=== PATIENT | female | born 1990 | race American Indian/Alaskan Native ===

== ENCOUNTER 2020-12-19 05:58 | Inpatient (IN) | payer BC, MEDICAID ==
[2020-12-19] MEDS ORDERED: fentaNYL 100 MCG/2 ML INJ IV PRN (09:04)
[2020-12-19] MEDS ORDERED: ONDANSETRON 4 MG/2 ML INJ IV PRN (09:04)
[2020-12-19] MEDS ORDERED: LOPERAMIDE 2 MG CAP PO PRN (09:04)
[2020-12-19] MEDS ORDERED: CARBOPROST TROMETHAMINE 250 MCG/1 ML INJ IM PRN (09:04)
[2020-12-19] MEDS ORDERED: miSOPROStol 200 MCG TAB PR PRN (09:04)
[2020-12-19] MEDS ORDERED: METHYLERGONOVINE MALEATE 0.2 MG/ML VIAL IM PRN (09:04)
[2020-12-19] MEDS ORDERED: ePHEDrine SULFATE 50 MG/1 ML INJ IV PRN ×2 (09:04→16:00)
[2020-12-19] MEDS ORDERED: MINERAL OIL 30 ML ORAL LIQD PO PRN (09:04)
[2020-12-19] MEDS ORDERED: ACETAMINOPHEN 325 MG TAB PO PRN (09:04)
[2020-12-19] MEDS ORDERED: TERBUTALINE 1 MG/1 ML INJ SUB-Q PRN (09:04)
[2020-12-19] MEDS ORDERED: OXYTOCIN 10 UNIT/1 ML INJ IM PRN (09:04)
[2020-12-19] MEDS ORDERED: NalbUPHINE 10 MG/1 ML INJ IV PRN (09:04)
--- NOTE | 2020-12-19 09:14 | History and Physical Report ---
History of Present Illness Date of examination: 12/19/20 (active labor; cervical chg in Triage) Chief complaint: worsening contractions History of present illness: EDC Confirmation: 12/16/2020 Gestational Age: 40+ weeks Past History : 1 Term Births: 0 Premature Births: 0 Living Children: 0 Para: 0 Mult. Births: 0 Prev : 0 Prev. attempt? 0 Aborta: 0 Elect. Ab: 0 Spont. 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 Family Hx: breast CA - Paternal aunt Social Hx: single no ETOH/Drugs/Smoking Infection History Hx of STD: none HIV Risk Eval: no Hepatitis B Risk Eval: low risk Varicella/Chicken Pox Status: Previous Disease Genetic History Congenital Heart Defect: Mom: no Dad: no [place] Disease: Mom: no Dad: no Thalassemia Mom: no Dad: no Neural Tube Defect Mom: no Dad: no Down's Syndrome Mom: no Dad: no Tony-Sachs Mom: no Dad: no Sickle Cell Disease/Trait Mom: no Dad: no Hemophilia Mom: no Dad: no Muscular Dystrophy Mom: no Dad: no Cystic Fibrosis Mom: no Dad: no [place] Chorea Mom: no Dad: no Mental Retardation Mom: no Dad: no Fragile X Mom: no Dad: no Other Genetic/Chromosomal Disorder Mom: no Dad: no Child w/other defect Mom: no Dad: no Enviromental Exposures Xray Exposure: no Medication, drug, or alcohol use since LMP: no Chemical/Other Exposure: no Exposure to Cat Liter: no Hx of Parvovirus (Fifth Disease): no Occupational Exposure to Children: none Active Medications (reviewed today): None Current Allergies (reviewed today): No known allergies Past History Past Medical History: no pertinent history, other (obesity BMI 46) Past Surgical History: tonsillectomy Family/Genetic History: cancer Social history: single - Obstetrical History Expected Date of Delivery: 12/16/20 Actual Gestation: 40 Week(s) 3 Day(s) : 1 Para: 0 Hx # Term Pregnancies: 0 Number of Pregnancies: 0 Spontaneous Abortions: 0 Induced : 0 Number of Living Children: 0 Medications and Allergies Allergies Allergy/AdvReac Type Severity Reaction Status Date / Time No Known Allergies Allergy Verified 03/10/14 17:10 Home Medications Medication Instructions Recorded Confirmed Last Taken Type Cyclobenzaprine [Flexeril 10mg] 10 mg PO BID PRN #10 tablet 03/10/14 Unknown Rx Naproxen [Naprosyn] 250 mg PO BID #20 tablet 03/10/14 Unknown Rx RX: predniSONE [Deltasone] 40 mg PO QDAY #4 day 03/10/14 Unknown Rx RX: traMADoL [Ultram 50 MG tab] 50 mg PO Q6HR PRN #10 tablet 03/10/14 Unknown Rx Review of Systems All systems: negative - Vital Signs Vital signs: Vital Signs Pulse BP Pulse Ox 101 H 123/91 99 12/19/20 06:20 12/19/20 06:20 12/19/20 06:20 Temp Pulse Resp BP Pulse Ox 98.6 F 67 18 115/70 100 12/19/20 06:21 12/19/20 09:07 12/19/20 06:21 12/19/20 08:53 12/19/20 09:07 - Physical Exam Breasts: Positive: deferred Cardiovascular: Regular rate, Normal S1, Normal S2 Lungs: Positive: Normal air movement Abdomen: Positive: normal appearance, soft, normal bowel sounds. Negative: dis tention, tenderness Genitourinary (Female): Positive: normal external genitalia Vulva: both: normal Vagina: Positive: normal moisture. Negative: discharge Cervix: Negative: lesion, discharge Uterus: Positive: normal size, normal contour Adnexa: both: normal Anus/Rectum: Positive: normal perianal skin, heme negative. Negative: rectal mass, hemorrhoids Extremities: Deep Tendon Reflex Grade: Normal +2 - Obstetrical FHR: category 1 Uterine Contraction Monitor Mode: External Cervical Dilatation: 3.5 Cervical Effacement Percentage: 70 station: -2 Uterine Contraction Pattern: Regular Uterine Tone Measurement Phase: Resting Uterine Contraction Intensity: Moderate Results All other labs normal. GBS POSITIVE HBsAg Screen Negative Negative *1 RPR Non Reactive Non Reactive *2 Rubella Antibodies, IgG 1.63 index Immune >0.99 *3 Non-immune <0.90 Equivocal 0.90 - 0.99 Immune >0.99 ABO Grouping A *1 Rh Factor Positive *2 Please note: Prior records for this patient's ABO / Rh type are not available for additional verification. Tests: (2) Gest. Diabetes 1-Hr Screen (714649) ! Gestational Diabetes Screen 85 mg/dL 65-139 *3 According to ADA, a glucose threshold of >139 mg/dL after 50-gram load identifies approximately 80% of women with gestational diabetes mellitus, while the sensitivity is further increased to approximately 90% by a threshold of >129 mg/dL. Tests: (3) Antibody Screen ([id number]) Antibody Screen Negative Negative *4 WBC [H] 14.9 x10E3/uL 3.4-10.8 *7 RBC 4.91 x10E6/uL 3.77-5.28 *8 Hemoglobin 12.7 g/dL 11.1-15.9 *9 Hematocrit 39.4 % 34.0-46.6 *10 MCV 80 fL 79-97 *11 MCH [L] 25.9 pg 26.6-33.0 *12 MCHC 32.2 g/dL 31.5-35.7 *13 RDW 14.7 % 11.7-15.4 *14 Platelets 418 x10E3/uL 150-450 *15 Neutrophils 83 % Not Estab. *16 Lymphs 13 % Not Estab. *17 Monocytes 4 % Not Estab. *18 Eos 0 % Not Estab. *19 Basos 0 % Not Estab. *20 ! Immature Cells <No Reported Value> *21 Neutrophils (Absolute) [H] 12.2 x10E3/uL 1.4-7.0 *22 Lymphs (Absolute) 1.9 x10E3/uL 0.7-3.1 *23 Monocytes(Absolute) 0.6 x10E3/uL 0.1-0.9 *24 Eos (Absolute) 0.0 x10E3/uL 0.0-0.4 *25 Baso (Absolute) 0.1 x10E3/uL 0.0-0.2 *26 ! Immature Granulocytes 0 % Not Estab. *27 ! Immature Grans (Abs) 0.0 x10E3/uL 0.0-0.1 *28 ! NRBC <No Reported Value> *29 Hematology Comments: <No Reported Value> *30 Tests: (2) HB Solu + Rflx Frac ([id number]) Hemoglobin (Hgb) Solubility [A] Positive Negative *31 Verified by repeat analysis Tests: (3) Hemoglobin Frac.w/o Solubility ([id number]) ! Hgb F 0.0 % 0.0-2.0 *32 ! Hgb A [L] 58.3 % 96.4-98.8 *33 ! Hgb S [H] 37.6 % 0.0 *34 ! Hgb C 0.0 % 0.0 *35 ! Hgb A2 [H] 4.1 % 1.8-3.2 *36 ! Hgb Variant <No Reported Value> *37 ! Interpretation HGAS1 *38 Hemoglobin pattern and concentration are consistent with sickle cell trait (heterozygous). Suggest clinical and hematologic correlation. Sickle Trait Interpretation Ranges Hgb A 50.0 - 70.0% Hgb S 30.0 - 45.0% Hgb A2 3.0 - 5.0%* *Hgb A2 values are seen to be increased over normal levels. This increase is typically due to interference from co-eluting Hgb S-subunits with the HPLC method and therefore the Hgb A2 interpretation ranges have been adjusted. Tests: (4) HIV Ag/Ab with Reflex ([id number]) HIV Screen 4th Generation wRfx Non Reactive Non Reactive *39 Tests: (5) HCV Ab w/Rflx to Verification ([id number]) ! HCV Ab <0.1 s/co ratio 0.0-0.9 *40 Tests: (6) Comment: ([id number]) ! Comment: SPRCS *41 Non reactive HCV antibody screen is consistent with no HCV infection, unless recent infection is suspected or other evidence exists to indicate HCV infection. Tests: (7) Urine Culture, Routine ([id number]) Urine Culture, Routine Final report *42 Tests: (8) Result ([id number]) ! Result 1 MUG *43 Mixed urogenital blanquita 10,000-25,000 colony forming units per mL Assessment and Plan 30yo @ 40+w GBS+ in active labor All orders in EMR - Patient Problems (1) Group B Streptococcus carrier state affecting Onset Date: ~12/19/20 Current Visit: Yes Status: Acute Plan to address problem: Will treat per protocol
[2020-12-19] MEDS ORDERED: LACTATED RINGERS 1,000 ML IV SCH (09:15)
[2020-12-19] MEDS ORDERED: LIDOCAINE (2%) 20 MG/1 ML VIAL 20 ML MDV INFILTRATI ONE (10:00)
[2020-12-19] MEDS ORDERED: AMPICILLIN/NS 2 GM/100 ML 2 GM/100 ML BAG IV ONE (10:00)
[2020-12-19] MEDS ORDERED: OXYTOCIN DRIP 30 UNITS/500 ML BAG IV SCH ×2 (10:00)
--- NOTE | 2020-12-19 12:36 | Event Note ---
Date: 12/19/20 (Pt states ctx are worsening.) SVE 4,70,-2 Pt eventually desires an epidural. Eating at the moment
[2020-12-19] MEDS ORDERED: AMPICILLIN/NS 1 GM/50 ML 1 GM/50 ML BAG IV SCH (14:00)
[2020-12-19 14:44] LABS: Hematocrit 33.5 % (30.3-42.9); Mean Corpuscular HGB Conc 33 % (30-34); Mean Corpuscular Volume 83 fl (79-97); Platelet Count 426 K/mm3 (140-440); Red Blood Count 4.03 M/mm3 (3.65-5.03); Red Cell Distribution Width 16.7 % (13.2-15.2)
--- NOTE | 2020-12-19 15:19 | Anesthesia Consultation ---
Anesthesia Consult and Med Hx Date of service: 12/19/20 - Airway Anesthetic Teeth Evaluation: Poor ROM Head & Neck: Adequate Mental/Hyoid Distance: Adequate Mallampati Class: Class III Intubation Access Assessment: Possibly Difficult - Pulmonary Exam CTA: Yes - Cardiac Exam Cardiac Exam: RRR - Pre-Operative Health Status ASA Pre-Surgery Classification: ASA3 Proposed Anesthetic Plan: Epidural - Pulmonary Hx Smoking: No Hx Asthma: No Hx Respiratory Symptoms: No SOB: No COPD: No Home Oxygen Therapy: No Hx Pneumonia: No Hx Sleep Apnea: No - Cardiovascular System Hx Hypertension: No Hx Coronary Artery Disease: No Hx Heart Attack/AMI: No Hx Angina: No Hx Percutaneous Transluminal Coronary Angioplasty (PTCA): No Hx Cardia Arrhythmia: No Hx Pacemaker: No Hx Internal Defibrillator: No Hx Valvular Heart Disease: No Hx Heart Murmur: No Hx Peripheral Vascular Disease: No - Central Nervous System Hx Neuromuscular Disorder: No Hx Seizures: No CVA: No Hx Back Pain: Yes - Gastrointestinal Hx Ulcer: No Hx Gastroesophageal Reflux Disease: Yes - Endocrine Hx Renal Disease: No Hx End Stage Renal Disease: No Hx Cirrhosis: No Hx Liver Disease: No Hx Insulin Dependent Diabetes: No Hx Non-Insulin Dependent Diabetes: No Hx Thyroid Disease: No Hx Hypothyroidism: No Hx Hyperthyroidism: No - Hematic Hx Anemia: No Hx Sickle Cell Disease: Yes (Trait) - Other Systems Hx Alcohol Use: No Hx Substance Use: No Hx Cancer: No Hx Obesity: Yes - Additional Comments Anesthesia Medical History Comments: Tonsillectomy/ear tubes
[2020-12-19] MEDS ORDERED: NALOXONE 2 MG/2 ML INJ IV PRN (16:00)
[2020-12-19] MEDS ORDERED: fentaNYL-BUPIV 2 MCG/ML-0.125% 200 MCG/100 ML BAG EPIDURAL SCH (16:00)
--- NOTE | 2020-12-19 16:07 | Progress Note ---
Assessment and Plan Comfortable with epidural Buchanan placed. ISE/IUPC placed Meconium noted at rupture Pit restarted - Patient Problems (1) Group B Streptococcus carrier state affecting Onset Date: ~12/19/20 Current Visit: Yes Status: Acute (2) Meconium in amniotic fluid Onset Date: ~12/19/20 Current Visit: Yes Status: Acute Plan to address problem: NICU notified Pt aware of finding and that NICU/DASHA will be present for delivery Subjective - Subjective Date of service: 12/19/20 (comfortable with epidural) Interval history: EDC Confirmation: 12/16/2020 Gestational Age: 40+ weeks Past History : 1 Term Births: 0 Premature Births: 0 Living Children: 0 Para: 0 Mult. Births: 0 Prev : 0 Prev. attempt? 0 Aborta: 0 Elect. Ab: 0 Spont. 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 Family Hx: breast CA - Paternal aunt Social Hx: single no ETOH/Drugs/Smoking Infection History Hx of STD: none HIV Risk Eval: no Hepatitis B Risk Eval: low risk Varicella/Chicken Pox Status: Previous Disease Genetic History Congenital Heart Defect: Mom: no Dad: no [place] Disease: Mom: no Dad: no Thalassemia Mom: no Dad: no Neural Tube Defect Mom: no Dad: no Down's Syndrome Mom: no Dad: no Tony-Sachs Mom: no Dad: no Sickle Cell Disease/Trait Mom: no Dad: no Hemophilia Mom: no Dad: no Muscular Dystrophy Mom: no Dad: no Cystic Fibrosis Mom: no Dad: no [place] Chorea Mom: no Dad: no Mental Retardation Mom: no Dad: no Fragile X Mom: no Dad: no Other Genetic/Chromosomal Disorder Mom: no Dad: no Child w/other defect Mom: no Dad: no Enviromental Exposures Xray Exposure: no Medication, drug, or alcohol use since LMP: no Chemical/Other Exposure: no Exposure to Cat Liter: no Hx of Parvovirus (Fifth Disease): no Occupational Exposure to Children: none Active Medications (reviewed today): None Current Allergies (reviewed today): No known allergies Patient reports: movement normal Objective - Vital Signs Vital Signs: Vital Signs - 12hr 12/19/20 12/19/20 12/19/20 06:20 06:21 06:25 Temperature 98.6 F Pulse Rate 101 H 84 84 Respiratory 18 Rate Blood Pressure 123/91 Blood Pressure 123/91 [Right] O2 Sat by Pulse 99 100 99 Oximetry O2 Sat by Pulse Oximetry [ Bilateral Throughout] 12/19/20 12/19/20 12/19/20 06:30 06:35 06:36 Temperature Pulse Rate 85 82 82 Respiratory Rate Blood Pressure 121/86 Blood Pressure [Right] O2 Sat by Pulse 99 99 Oximetry O2 Sat by Pulse Oximetry [ Bilateral Throughout] 12/19/20 12/19/20 12/19/20 06:40 06:45 06:50 Temperature Pulse Rate 89 79 69 Respiratory Rate Blood Pressure Blood Pressure [Right] O2 Sat by Pulse 100 99 99 Oximetry O2 Sat by Pulse Oximetry [ Bilateral Throughout] 12/19/20 12/19/20 12/19/20 06:51 06:55 07:00 Temperature Pulse Rate 73 80 83 Respiratory Rate Blood Pressure 121/88 Blood Pressure [Right] O2 Sat by Pulse 99 99 Oximetry O2 Sat by Pulse Oximetry [ Bilateral Throughout] 12/19/20 12/19/20 12/19/20 07:08 07:21 07:36 Temperature Pulse Rate 64 76 75 Respiratory Rate Blood Pressure 123/70 116/66 113/73 Blood Pressure [Right] O2 Sat by Pulse Oximetry O2 Sat by Pulse Oximetry [ Bilateral Throughout] 12/19/20 12/19/20 12/19/20 08:52 08:53 08:57 Temperature Pulse Rate 78 73 63 Respiratory Rate Blood Pressure 115/70 Blood Pressure [Right] O2 Sat by Pulse 99 100 Oximetry O2 Sat by Pulse Oximetry [ Bilateral Throughout] 12/19/20 12/19/20 12/19/20 09:02 09:07 09:26 Temperature Pulse Rate 65 67 92 H Respiratory Rate Blood Pressure 122/89 Blood Pressure [Right] O2 Sat by Pulse 99 100 97 Oximetry O2 Sat by Pulse Oximetry [ Bilateral Throughout] 12/19/20 12/19/20 12/19/20 09:31 09:36 09:41 Temperature Pulse Rate 82 77 75 Respiratory Rate Blood Pressure Blood Pressure [Right] O2 Sat by Pulse 100 100 99 Oximetry O2 Sat by Pulse Oximetry [ Bilateral Throughout] 12/19/20 12/19/20 12/19/20 09:46 09:51 09:56 Temperature Pulse Rate 76 68 70 Respiratory Rate Blood Pressure Blood Pressure [Right] O2 Sat by Pulse 99 99 100 Oximetry O2 Sat by Pulse Oximetry [ Bilateral Throughout] 12/19/20 12/19/20 12/19/20 10:01 10:06 10:11 Temperature Pulse Rate 78 84 74 Respiratory Rate Blood Pressure Blood Pressure [Right] O2 Sat by Pulse 99 99 100 Oximetry O2 Sat by Pulse Oximetry [ Bilateral Throughout] 12/19/20 12/19/20 12/19/20 10:16 10:21 10:26 Temperature Pulse Rate 73 77 80 Respiratory Rate Blood Pressure Blood Pressure [Right] O2 Sat by Pulse 100 100 99 Oximetry O2 Sat by Pulse Oximetry [ Bilateral Throughout] 12/19/20 12/19/20 12/19/20 10:31 10:36 10:41 Temperature Pulse Rate 90 63 68 Respiratory Rate Blood Pressure Blood Pressure [Right] O2 Sat by Pulse 100 100 100 Oximetry O2 Sat by Pulse Oximetry [ Bilateral Throughout] 12/19/20 12/19/20 12/19/20 10:46 10:51 10:56 Temperature Pulse Rate 69 94 H 79 Respiratory Rate Blood Pressure Blood Pressure [Right] O2 Sat by Pulse 100 100 100 Oximetry O2 Sat by Pulse Oximetry [ Bilateral Throughout] 12/19/20 12/19/20 12/19/20 11:01 11:06 11:13 Temperature Pulse Rate 71 68 72 Respiratory Rate Blood Pressure Blood Pressure [Right] O2 Sat by Pulse 100 100 99 Oximetry O2 Sat by Pulse Oximetry [ Bilateral Throughout] 12/19/20 12/19/20 12/19/20 11:18 11:23 11:24 Temperature Pulse Rate 82 76 77 Respiratory Rate Blood Pressure Blood Pressure [Right] O2 Sat by Pulse 99 100 94 Oximetry O2 Sat by Pulse Oximetry [ Bilateral Throughout] 12/19/20 12/19/20 12/19/20 11:28 11:33 11:38 Temperature Pulse Rate 72 71 68 Respiratory Rate Blood Pressure Blood Pressure [Right] O2 Sat by Pulse 100 100 100 Oximetry O2 Sat by Pulse Oximetry [ Bilateral Throughout] 12/19/20 12/19/20 12/19/20 11:43 11:47 11:48 Temperature Pulse Rate 66 84 82 Respiratory Rate Blood Pressure Blood Pressure [Right] O2 Sat by Pulse 100 89 98 Oximetry O2 Sat by Pulse Oximetry [ Bilateral Throughout] 12/19/20 12/19/20 12/19/20 11:53 11:58 12:03 Temperature Pulse Rate 81 78 74 Respiratory Rate Blood Pressure Blood Pressure [Right] O2 Sat by Pulse 100 98 100 Oximetry O2 Sat by Pulse Oximetry [ Bilateral Throughout] 12/19/20 12/19/20 12/19/20 12:08 12:13 12:18 Temperature Pulse Rate 73 91 H 71 Respiratory Rate Blood Pressure Blood Pressure [Right] O2 Sat by Pulse 100 100 100 Oximetry O2 Sat by Pulse Oximetry [ Bilateral Throughout] 12/19/20 12/19/20 12/19/20 12:23 12:28 12:33 Temperature Pulse Rate 78 82 92 H Respiratory Rate Blood Pressure Blood Pressure [Right] O2 Sat by Pulse 100 100 100 Oximetry O2 Sat by Pulse Oximetry [ Bilateral Throughout] 12/19/20 12/19/20 12/19/20 12:38 12:43 12:48 Temperature Pulse Rate 103 H 92 H 93 H Respiratory Rate Blood Pressure Blood Pressure [Right] O2 Sat by Pulse 100 100 100 Oximetry O2 Sat by Pulse Oximetry [ Bilateral Throughout] 12/19/20 12/19/20 12/19/20 12:53 12:58 13:03 Temperature Pulse Rate 81 74 81 Respiratory Rate Blood Pressure Blood Pressure [Right] O2 Sat by Pulse 100 100 100 Oximetry O2 Sat by Pulse Oximetry [ Bilateral Throughout] 12/19/20 12/19/20 12/19/20 13:13 13:18 13:23 Temperature Pulse Rate 92 H 97 H 82 Respiratory Rate Blood Pressure Blood Pressure [Right] O2 Sat by Pulse 99 100 100 Oximetry O2 Sat by Pulse Oximetry [ Bilateral Throughout] 12/19/20 12/19/20 12/19/20 13:28 13:33 13:38 Temperature Pulse Rate 78 102 H 87 Respiratory Rate Blood Pressure Blood Pressure [Right] O2 Sat by Pulse 99 99 100 Oximetry O2 Sat by Pulse Oximetry [ Bilateral Throughout] 12/19/20 12/19/20 12/19/20 13:43 13:48 13:53 Temperature Pulse Rate 87 79 96 H Respiratory Rate Blood Pressure Blood Pressure [Right] O2 Sat by Pulse 100 99 100 Oximetry O2 Sat by Pulse Oximetry [ Bilateral Throughout] 12/19/20 12/19/20 12/19/20 13:58 14:00 14:03 Temperature Pulse Rate 91 H 74 Respiratory Rate Blood Pressure Blood Pressure [Right] O2 Sat by Pulse 100 100 Oximetry O2 Sat by Pulse 100 Oximetry [ Bilateral Throughout] 12/19/20 12/19/20 12/19/20 14:08 14:13 14:14 Temperature Pulse Rate 87 75 77 Respiratory Rate Blood Pressure 126/75 Blood Pressure [Right] O2 Sat by Pulse 100 99 Oximetry O2 Sat by Pulse Oximetry [ Bilateral Throughout] 12/19/20 12/19/20 12/19/20 14:18 14:23 14:28 Temperature Pulse Rate 77 91 H 77 Respiratory Rate Blood Pressure Blood Pressure [Right] O2 Sat by Pulse 100 100 99 Oximetry O2 Sat by Pulse Oximetry [ Bilateral Throughout] 12/19/20 12/19/20 12/19/20 14:33 14:38 14:43 Temperature 98.9 F Pulse Rate 81 83 81 Respiratory 18 Rate Blood Pressure Blood Pressure [Right] O2 Sat by Pulse 100 100 98 Oximetry O2 Sat by Pulse Oximetry [ Bilateral Throughout] 12/19/20 12/19/20 12/19/20 14:44 14:48 14:53 Temperature Pulse Rate 84 83 78 Respiratory Rate Blood Pressure Blood Pressure [Right] O2 Sat by Pulse 90 100 100 Oximetry O2 Sat by Pulse Oximetry [ Bilateral Throughout] 12/19/20 12/19/20 12/19/20 14:58 15:03 15:08 Temperature Pulse Rate 112 H 70 71 Respiratory Rate Blood Pressure Blood Pressure [Right] O2 Sat by Pulse 98 99 99 Oximetry O2 Sat by Pulse Oximetry [ Bilateral Throughout] 12/19/20 12/19/20 12/19/20 15:13 15:18 15:23 Temperature Pulse Rate 75 98 H 89 Respiratory Rate Blood Pressure 119/72 127/93 Blood Pressure [Right] O2 Sat by Pulse 100 100 100 Oximetry O2 Sat by Pulse Oximetry [ Bilateral Throughout] 12/19/20 12/19/20 12/19/20 15:26 15:28 15:32 Temperature Pulse Rate 93 H 83 86 Respiratory Rate Blood Pressure 134/94 130/61 Blood Pressure [Right] O2 Sat by Pulse 100 Oximetry O2 Sat by Pulse Oximetry [ Bilateral Throughout] 12/19/20 12/19/20 12/19/20 15:33 15:35 15:38 Temperature Pulse Rate 85 80 96 H Respiratory Rate Blood Pressure 124/66 121/65 Blood Pressure [Right] O2 Sat by Pulse 100 100 Oximetry O2 Sat by Pulse Oximetry [ Bilateral Throughout] 12/19/20 12/19/20 12/19/20 15:41 15:43 15:44 Temperature Pulse Rate 93 H 82 87 Respiratory Rate Blood Pressure 141/81 131/71 Blood Pressure [Right] O2 Sat by Pulse 100 Oximetry O2 Sat by Pulse Oximetry [ Bilateral Throughout] 12/19/20 12/19/20 12/19/20 15:47 15:48 15:50 Temperature Pulse Rate 85 82 72 Respiratory Rate Blood Pressure 126/74 117/66 Blood Pressure [Right] O2 Sat by Pulse 100 Oximetry O2 Sat by Pulse Oximetry [ Bilateral Throughout] 12/19/20 12/19/20 12/19/20 15:53 15:54 15:56 Temperature Pulse Rate 74 71 69 Respiratory Rate Blood Pressure 121/76 113/69 Blood Pressure [Right] O2 Sat by Pulse 100 Oximetry O2 Sat by Pulse Oximetry [ Bilateral Throughout] 12/19/20 12/19/20 12/19/20 15:58 15:59 16:02 Temperature Pulse Rate 91 H 89 90 Respiratory Rate Blood Pressure 117/74 129/79 Blood Pressure [Right] O2 Sat by Pulse 100 Oximetry O2 Sat by Pulse Oximetry [ Bilateral Throughout] - Exam Breasts: deferred Cardiovascular: Regular rate Lungs: Normal air movement Abdomen: Present: normal appearance, soft. Absent: distention, tenderness Uterus: Present: normal FHR: auscultation normal, category 1 Uterine Contraction Monitor Mode: Internal Cervical Dilatation: 6 (Internals placed) Cervical Effacement Percentage: 90 (meconium) station: -2 Uterine Contraction Pattern: Regular Uterine Tone Measurement Phase: Resting Uterine Contraction Intensity: Moderate Extremities: normal Deep Tendon Reflex Grade: Normal +2 - Labs Labs: Abnormal Labs 12/19/20 13:45 WBC 12.6 H MCH 27 L RDW 16.7 H Laboratory Results - last 24 hr 12/19/20 12/19/20 12/19/20 09:25 13:45 13:45 WBC 12.6 H RBC 4.03 Hgb 11.0 Hct 33.5 MCV 83 MCH 27 L MCHC 33 RDW 16.7 H Plt Count 426 Syphilis IgG Antibody Nonreactive Coronavirus (PCR) Negative Blood Type Antibody Screen 12/19/20 13:45 WBC RBC Hgb Hct MCV MCH MCHC RDW Plt Count Syphilis IgG Antibody Coronavirus (PCR) Blood Type A POSITIVE Antibody Screen Negative
--- NOTE | 2020-12-19 16:13 | Progress Note ---
Labor Epidural - Labor Epidural Start Time: 15:22 Stop Time: 15:48 Performed by:: GERMAIN MOBLEY Procedure: Patient is requesting a laboring epidural for laboring pain. Patient IDed, H&P reviewed, all questions and concerns were answered, and consent was signed. Timeout was performed at bedside. Patient in sitting position. Sterile prep and drape was performed. [3] ml of 1% lidocaine skin wheal at L[3]- L [4]. 18- gauge Vidya epidural needle was advanced to loss of resistance with saline technique 9cm. Negative CSF negative blood. Epidural catheter advanced to [12] centimeters. [NEGATIVE] Aspiration [NEGATIVE] test dose. Sterile dressing applied. Patient tolerated procedure.
[2020-12-19] MEDS ORDERED: SODIUM CHLORIDE 0.9% 1000 ML 1,000 ML VG SCH (18:30)
--- NOTE | 2020-12-19 19:37 | Event Note ---
Date: 12/19/20 (comfortable with epidural) Persistent variables noted SVE 6,90,-1 Amnioinfusion started Pit on 2mu Good responseCat 1 strip.
--- NOTE | 2020-12-19 19:43 | Progress Note ---
Assessment and Plan anticipate delivery - Patient Problems (1) Group B Streptococcus carrier state affecting Onset Date: ~12/19/20 Current Visit: Yes Status: Acute (2) Meconium in amniotic fluid Onset Date: ~12/19/20 Current Visit: Yes Status: Acute Subjective - Subjective Date of service: 12/19/20 (deep early) Interval history: EDC Confirmation: 12/16/2020 Gestational Age: 40+ weeks Past History : 1 Term Births: 0 Premature Births: 0 Living Children: 0 Para: 0 Mult. Births: 0 Prev : 0 Prev. attempt? 0 Aborta: 0 Elect. Ab: 0 Spont. 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 Family Hx: breast CA - Paternal aunt Social Hx: single no ETOH/Drugs/Smoking Infection History Hx of STD: none HIV Risk Eval: no Hepatitis B Risk Eval: low risk Varicella/Chicken Pox Status: Previous Disease Genetic History Congenital Heart Defect: Mom: no Dad: no [place] Disease: Mom: no Dad: no Thalassemia Mom: no Dad: no Neural Tube Defect Mom: no Dad: no Down's Syndrome Mom: no Dad: no Tony-Sachs Mom: no Dad: no Sickle Cell Disease/Trait Mom: no Dad: no Hemophilia Mom: no Dad: no Muscular Dystrophy Mom: no Dad: no Cystic Fibrosis Mom: no Dad: no Johnathan Chorea Mom: no Dad: no Mental Retardation Mom: no Dad: no Fragile X Mom: no Dad: no Other Genetic/Chromosomal Disorder Mom: no Dad: no Child w/other defect Mom: no Dad: no Enviromental Exposures Xray Exposure: no Medication, drug, or alcohol use since LMP: no Chemical/Other Exposure: no Exposure to Cat Liter: no Hx of Parvovirus (Fifth Disease): no Occupational Exposure to Children: none Active Medications (reviewed today): None Current Allergies (reviewed today): No known allergies Patient reports: movement normal Objective - Vital Signs Vital Signs: Vital Signs - 12hr 12/19/20 12/19/20 12/19/20 08:52 08:53 08:57 Temperature Pulse Rate 78 73 63 Respiratory Rate Blood Pressure 115/70 O2 Sat by Pulse 99 100 Oximetry O2 Sat by Pulse Oximetry [ Bilateral Throughout] 12/19/20 12/19/20 12/19/20 09:02 09:07 09:26 Temperature Pulse Rate 65 67 92 H Respiratory Rate Blood Pressure 122/89 O2 Sat by Pulse 99 100 97 Oximetry O2 Sat by Pulse Oximetry [ Bilateral Throughout] 12/19/20 12/19/20 12/19/20 09:31 09:36 09:41 Temperature Pulse Rate 82 77 75 Respiratory Rate Blood Pressure O2 Sat by Pulse 100 100 99 Oximetry O2 Sat by Pulse Oximetry [ Bilateral Throughout] 12/19/20 12/19/20 12/19/20 09:46 09:51 09:56 Temperature Pulse Rate 76 68 70 Respiratory Rate Blood Pressure O2 Sat by Pulse 99 99 100 Oximetry O2 Sat by Pulse Oximetry [ Bilateral Throughout] 12/19/20 12/19/20 12/19/20 10:01 10:06 10:11 Temperature Pulse Rate 78 84 74 Respiratory Rate Blood Pressure O2 Sat by Pulse 99 99 100 Oximetry O2 Sat by Pulse Oximetry [ Bilateral Throughout] 12/19/20 12/19/20 12/19/20 10:16 10:21 10:26 Temperature Pulse Rate 73 77 80 Respiratory Rate Blood Pressure O2 Sat by Pulse 100 100 99 Oximetry O2 Sat by Pulse Oximetry [ Bilateral Throughout] 12/19/20 12/19/20 12/19/20 10:31 10:36 10:41 Temperature Pulse Rate 90 63 68 Respiratory Rate Blood Pressure O2 Sat by Pulse 100 100 100 Oximetry O2 Sat by Pulse Oximetry [ Bilateral Throughout] 12/19/20 12/19/20 12/19/20 10:46 10:51 10:56 Temperature Pulse Rate 69 94 H 79 Respiratory Rate Blood Pressure O2 Sat by Pulse 100 100 100 Oximetry O2 Sat by Pulse Oximetry [ Bilateral Throughout] 12/19/20 12/19/20 12/19/20 11:01 11:06 11:13 Temperature Pulse Rate 71 68 72 Respiratory Rate Blood Pressure O2 Sat by Pulse 100 100 99 Oximetry O2 Sat by Pulse Oximetry [ Bilateral Throughout] 12/19/20 12/19/20 12/19/20 11:18 11:23 11:24 Temperature Pulse Rate 82 76 77 Respiratory Rate Blood Pressure O2 Sat by Pulse 99 100 94 Oximetry O2 Sat by Pulse Oximetry [ Bilateral Throughout] 12/19/20 12/19/20 12/19/20 11:28 11:33 11:38 Temperature Pulse Rate 72 71 68 Respiratory Rate Blood Pressure O2 Sat by Pulse 100 100 100 Oximetry O2 Sat by Pulse Oximetry [ Bilateral Throughout] 12/19/20 12/19/20 12/19/20 11:43 11:47 11:48 Temperature Pulse Rate 66 84 82 Respiratory Rate Blood Pressure O2 Sat by Pulse 100 89 98 Oximetry O2 Sat by Pulse Oximetry [ Bilateral Throughout] 12/19/20 12/19/20 12/19/20 11:53 11:58 12:03 Temperature Pulse Rate 81 78 74 Respiratory Rate Blood Pressure O2 Sat by Pulse 100 98 100 Oximetry O2 Sat by Pulse Oximetry [ Bilateral Throughout] 12/19/20 12/19/20 12/19/20 12:08 12:13 12:18 Temperature Pulse Rate 73 91 H 71 Respiratory Rate Blood Pressure O2 Sat by Pulse 100 100 100 Oximetry O2 Sat by Pulse Oximetry [ Bilateral Throughout] 12/19/20 12/19/20 12/19/20 12:23 12:28 12:33 Temperature Pulse Rate 78 82 92 H Respiratory Rate Blood Pressure O2 Sat by Pulse 100 100 100 Oximetry O2 Sat by Pulse Oximetry [ Bilateral Throughout] 12/19/20 12/19/20 12/19/20 12:38 12:43 12:48 Temperature Pulse Rate 103 H 92 H 93 H Respiratory Rate Blood Pressure O2 Sat by Pulse 100 100 100 Oximetry O2 Sat by Pulse Oximetry [ Bilateral Throughout] 12/19/20 12/19/20 12/19/20 12:53 12:58 13:03 Temperature Pulse Rate 81 74 81 Respiratory Rate Blood Pressure O2 Sat by Pulse 100 100 100 Oximetry O2 Sat by Pulse Oximetry [ Bilateral Throughout] 12/19/20 12/19/20 12/19/20 13:13 13:18 13:23 Temperature Pulse Rate 92 H 97 H 82 Respiratory Rate Blood Pressure O2 Sat by Pulse 99 100 100 Oximetry O2 Sat by Pulse Oximetry [ Bilateral Throughout] 12/19/20 12/19/20 12/19/20 13:28 13:33 13:38 Temperature Pulse Rate 78 102 H 87 Respiratory Rate Blood Pressure O2 Sat by Pulse 99 99 100 Oximetry O2 Sat by Pulse Oximetry [ Bilateral Throughout] 12/19/20 12/19/20 12/19/20 13:43 13:48 13:53 Temperature Pulse Rate 87 79 96 H Respiratory Rate Blood Pressure O2 Sat by Pulse 100 99 100 Oximetry O2 Sat by Pulse Oximetry [ Bilateral Throughout] 12/19/20 12/19/20 12/19/20 13:58 14:00 14:03 Temperature Pulse Rate 91 H 74 Respiratory Rate Blood Pressure O2 Sat by Pulse 100 100 Oximetry O2 Sat by Pulse 100 Oximetry [ Bilateral Throughout] 12/19/20 12/19/20 12/19/20 14:08 14:13 14:14 Temperature Pulse Rate 87 75 77 Respiratory Rate Blood Pressure 126/75 O2 Sat by Pulse 100 99 Oximetry O2 Sat by Pulse Oximetry [ Bilateral Throughout] 12/19/20 12/19/20 12/19/20 14:18 14:23 14:28 Temperature Pulse Rate 77 91 H 77 Respiratory Rate Blood Pressure O2 Sat by Pulse 100 100 99 Oximetry O2 Sat by Pulse Oximetry [ Bilateral Throughout] 12/19/20 12/19/20 12/19/20 14:33 14:38 14:43 Temperature 98.9 F Pulse Rate 81 83 81 Respiratory 18 Rate Blood Pressure O2 Sat by Pulse 100 100 98 Oximetry O2 Sat by Pulse Oximetry [ Bilateral Throughout] 12/19/20 12/19/20 12/19/20 14:44 14:48 14:53 Temperature Pulse Rate 84 83 78 Respiratory Rate Blood Pressure O2 Sat by Pulse 90 100 100 Oximetry O2 Sat by Pulse Oximetry [ Bilateral Throughout] 12/19/20 12/19/20 12/19/20 14:58 15:03 15:08 Temperature Pulse Rate 112 H 70 71 Respiratory Rate Blood Pressure O2 Sat by Pulse 98 99 99 Oximetry O2 Sat by Pulse Oximetry [ Bilateral Throughout] 12/19/20 12/19/20 12/19/20 15:13 15:18 15:23 Temperature Pulse Rate 75 98 H 89 Respiratory Rate Blood Pressure 119/72 127/93 O2 Sat by Pulse 100 100 100 Oximetry O2 Sat by Pulse Oximetry [ Bilateral Throughout] 12/19/20 12/19/20 12/19/20 15:26 15:28 15:32 Temperature Pulse Rate 93 H 83 86 Respiratory Rate Blood Pressure 134/94 130/61 O2 Sat by Pulse 100 Oximetry O2 Sat by Pulse Oximetry [ Bilateral Throughout] 12/19/20 12/19/20 12/19/20 15:33 15:35 15:38 Temperature Pulse Rate 85 80 96 H Respiratory Rate Blood Pressure 124/66 121/65 O2 Sat by Pulse 100 100 Oximetry O2 Sat by Pulse Oximetry [ Bilateral Throughout] 12/19/20 12/19/20 12/19/20 15:41 15:43 15:44 Temperature Pulse Rate 93 H 82 87 Respiratory Rate Blood Pressure 141/81 131/71 O2 Sat by Pulse 100 Oximetry O2 Sat by Pulse Oximetry [ Bilateral Throughout] 12/19/20 12/19/20 12/19/20 15:47 15:48 15:50 Temperature Pulse Rate 85 82 72 Respiratory Rate Blood Pressure 126/74 117/66 O2 Sat by Pulse 100 Oximetry O2 Sat by Pulse Oximetry [ Bilateral Throughout] 12/19/20 12/19/20 12/19/20 15:53 15:54 15:56 Temperature Pulse Rate 74 71 69 Respiratory Rate Blood Pressure 121/76 113/69 O2 Sat by Pulse 100 Oximetry O2 Sat by Pulse Oximetry [ Bilateral Throughout] 12/19/20 12/19/20 12/19/20 15:58 15:59 16:02 Temperature Pulse Rate 91 H 89 90 Respiratory Rate Blood Pressure 117/74 129/79 O2 Sat by Pulse 100 Oximetry O2 Sat by Pulse Oximetry [ Bilateral Throughout] 12/19/20 12/19/20 12/19/20 16:03 16:05 16:08 Temperature Pulse Rate 76 92 H 70 Respiratory Rate Blood Pressure 117/70 118/67 O2 Sat by Pulse 99 99 Oximetry O2 Sat by Pulse Oximetry [ Bilateral Throughout] 12/19/20 12/19/20 12/19/20 16:11 16:13 16:14 Temperature Pulse Rate 85 74 66 Respiratory Rate Blood Pressure 124/60 117/63 O2 Sat by Pulse 100 Oximetry O2 Sat by Pulse Oximetry [ Bilateral Throughout] 12/19/20 12/19/20 12/19/20 16:17 16:18 16:20 Temperature Pulse Rate 73 83 69 Respiratory Rate Blood Pressure 114/61 115/63 O2 Sat by Pulse 100 Oximetry O2 Sat by Pulse Oximetry [ Bilateral Throughout] 12/19/20 12/19/20 12/19/20 16:23 16:24 16:27 Temperature Pulse Rate 77 85 66 Respiratory Rate Blood Pressure 119/63 123/66 O2 Sat by Pulse 99 Oximetry O2 Sat by Pulse Oximetry [ Bilateral Throughout] 08/12/19/20 12/19/20 16:28 16:33 16:38 Temperature Pulse Rate 63 64 67 Respiratory Rate Blood Pressure O2 Sat by Pulse 100 100 100 Oximetry O2 Sat by Pulse Oximetry [ Bilateral Throughout] 12/19/20 12/19/20 12/19/20 16:43 16:48 16:53 Temperature Pulse Rate 68 65 66 Respiratory Rate Blood Pressure 127/70 O2 Sat by Pulse 100 100 100 Oximetry O2 Sat by Pulse Oximetry [ Bilateral Throughout] 12/19/20 12/19/20 12/19/20 16:58 17:03 17:08 Temperature Pulse Rate 71 66 65 Respiratory Rate Blood Pressure 115/63 O2 Sat by Pulse 100 100 100 Oximetry O2 Sat by Pulse Oximetry [ Bilateral Throughout] 12/19/20 12/19/20 12/19/20 17:13 17:14 17:18 Temperature Pulse Rate 61 61 66 Respiratory Rate Blood Pressure 109/58 O2 Sat by Pulse 100 100 Oximetry O2 Sat by Pulse Oximetry [ Bilateral Throughout] 12/19/20 12/19/20 12/19/20 17:23 17:28 17:30 Temperature Pulse Rate 63 59 L 63 Respiratory Rate Blood Pressure 107/60 O2 Sat by Pulse 100 100 Oximetry O2 Sat by Pulse Oximetry [ Bilateral Throughout] 12/19/20 12/19/20 12/19/20 17:33 17:38 17:42 Temperature Pulse Rate 73 64 73 Respiratory Rate Blood Pressure O2 Sat by Pulse 100 100 89 Oximetry O2 Sat by Pulse Oximetry [ Bilateral Throughout] 12/19/20 12/19/20 12/19/20 17:43 17:48 17:53 Temperature Pulse Rate 65 67 63 Respiratory Rate Blood Pressure 129/64 O2 Sat by Pulse 100 100 100 Oximetry O2 Sat by Pulse Oximetry [ Bilateral Throughout] 12/19/20 12/19/20 12/19/20 17:58 18:03 18:08 Temperature Pulse Rate 60 64 62 Respiratory Rate Blood Pressure 103/56 O2 Sat by Pulse 100 100 100 Oximetry O2 Sat by Pulse Oximetry [ Bilateral Throughout] 12/19/20 12/19/20 12/19/20 18:13 18:18 18:23 Temperature Pulse Rate 63 64 63 Respiratory Rate Blood Pressure 107/59 O2 Sat by Pulse 100 100 100 Oximetry O2 Sat by Pulse Oximetry [ Bilateral Throughout] 12/19/20 12/19/20 12/19/20 18:28 18:33 18:38 Temperature Pulse Rate 60 67 60 Respiratory Rate Blood Pressure 115/56 O2 Sat by Pulse 100 100 100 Oximetry O2 Sat by Pulse Oximetry [ Bilateral Throughout] 12/19/20 12/19/20 12/19/20 18:43 18:44 18:48 Temperature Pulse Rate 61 58 L 68 Respiratory Rate Blood Pressure 118/62 O2 Sat by Pulse 100 100 Oximetry O2 Sat by Pulse Oximetry [ Bilateral Throughout] 12/19/20 12/19/20 12/19/20 18:53 18:58 19:03 Temperature Pulse Rate 63 59 L 60 Respiratory Rate Blood Pressure 109/61 O2 Sat by Pulse 100 100 100 Oximetry O2 Sat by Pulse Oximetry [ Bilateral Throughout] 12/19/20 12/19/20 12/19/20 19:08 19:12 19:13 Temperature Pulse Rate 64 70 70 Respiratory Rate Blood Pressure 106/57 O2 Sat by Pulse 100 100 Oximetry O2 Sat by Pulse Oximetry [ Bilateral Throughout] 12/19/20 12/19/20 12/19/20 19:18 19:23 19:26 Temperature 98.2 F Pulse Rate 66 71 Respiratory 18 Rate Blood Pressure O2 Sat by Pulse 100 100 Oximetry O2 Sat by Pulse 100 Oximetry [ Bilateral Throughout] 12/19/20 12/19/20 12/19/20 19:28 19:33 19:38 Temperature Pulse Rate 69 66 64 Respiratory Rate Blood Pressure 110/59 O2 Sat by Pulse 100 100 100 Oximetry O2 Sat by Pulse Oximetry [ Bilateral Throughout] - Exam Breasts: deferred Cardiovascular: Regular rate Lungs: Normal air movement Abdomen: Present: normal appearance, soft. Absent: distention, tenderness Uterus: Present: normal FHR: auscultation normal Uterine Contraction Monitor Mode: Internal Cervical Dilatation: 9 Cervical Effacement Percentage: 100 station: 0 Uterine Contraction Pattern: Regular Uterine Tone Measurement Phase: Resting Uterine Contraction Intensity: Strong/Firm Extremities: edema Deep Tendon Reflex Grade: Normal +2 - Labs Labs: Abnormal Labs 12/19/20 13:45 WBC 12.6 H MCH 27 L RDW 16.7 H Laboratory Results - last 24 hr 12/19/20 12/19/20 12/19/20 09:25 13:45 13:45 WBC 12.6 H RBC 4.03 Hgb 11.0 Hct 33.5 MCV 83 MCH 27 L MCHC 33 RDW 16.7 H Plt Count 426 Syphilis IgG Antibody Nonreactive Coronavirus (PCR) Negative Blood Type Antibody Screen 12/19/20 13:45 WBC RBC Hgb Hct MCV MCH MCHC RDW Plt Count Syphilis IgG Antibody Coronavirus (PCR) Blood Type A POSITIVE Antibody Screen Negative
[2020-12-19] MEDS ORDERED: MAGNESIUM HYDROXIDE (MOM) ORAL LIQD UDC PO PRN (21:24)
[2020-12-19] MEDS ORDERED: HYDROcodone/ACETAMINOPHEN 5-325 MG TAB PO PRN (21:24)
[2020-12-19] MEDS ORDERED: WITCH HAZEL/ GLYCERIN PAD TP PRN (21:24)
[2020-12-19] MEDS ORDERED: LANOLIN/ZINC/DIMETHICONE (LANSINOH) 7 GM TP PRN (21:24)
[2020-12-19] MEDS ORDERED: diphenhydrAMINE 25 MG CAP PO PRN (21:24)
[2020-12-19] MEDS ORDERED: PROMETHAZINE 25 MG TAB PO PRN (21:24)
--- NOTE | 2020-12-19 21:34 | Procedure Note ---
OB Delivery Note - Delivery Date of Delivery: 12/19/20 Account Classification Clerk: JOVITA HILLIARD Estimated blood loss: 300cc - Vaginal Delivery presentation: vertex Delivery position: OA Intrapartum events: meconium Delivery induction: none Delivery augmentation: pitocin Delivery monitor: internal FHT, internal uterine Route of delivery: Delivery placenta: spontaneous Delivery cord: nuchal cord, 3 umbilical vessels Episiotomy: none Delivery laceration: 2nd degree Delivery repair: vicryl Anesthesia: epidural Delivery comments: DASHA & RT present d/t meconium Count correct X 2 live born female over intact perineum, CAN X 1 delivered through. Baby placed skin to skin on mom's abdomen. Cord clamped and cut Placenta and membrane delivered complete and intact, 3 vessel cord. Moderate bleeding Methergine IM given Pitocin IVFs 2nd degree laceration Repaired with 2-0 vicryl. 8/9, EBL 300, Wgt 6-8 Mom and baby remain LDR stable. FF @ umb Lochia moderate - A at 1 minute: 8 at 5 minutes: 9 Infant Gender: Female ([facility] wgt 6-8)
--- NOTE | 2020-12-20 03:28 | Post Anesthesia Evaluation ---
- Post Anesthesia Evaluation Patient Participated: Yes Airway Patent: Yes Stable Respiratory Function: Yes Nausea/Vomiting: No Temp > 96.8F: Yes Pain Manageable: Yes Adequeate Hydration: Yes Anesthesia Complications: No Block Receding Appropriately: Yes Patient on Ventilator: No
[2020-12-20] MEDS: IBUPROFEN 800 MG TAB PO SCH ×4 (05:30→21:23)
[2020-12-20] MEDS ORDERED: TETANUS,DIPH,PERTUSS(ACELL) VACCINE 0.5 ML SYRINGE IM ONE (06:00)
[2020-12-20] MEDS: DOCUSATE SODIUM 100 MG CAP PO SCH ×2 (09:46→21:24)
[2020-12-20 13:12] LABS: Hematocrit 30.5 % (30.3-42.9); Hemoglobin 9.9 gm/dl (10.1-14.3)
--- NOTE | 2020-12-20 16:58 | Progress Note ---
Assessment and Plan A: 30 y.o. s/p @ term. Doing well . P: Continue with care. Anticipate discharge home on 12/21. Subjective - Subjective Date of service: 12/20/20 (Pt doing well. ) Principal diagnosis: s/p Patient reports: appetite normal, voiding normally, pain well controlled, flatus, ambulating normally [place]: doing well Objective - Vital Signs Latest vital signs: Vital Signs Temp Pulse Resp BP BP Pulse Ox Pulse Ox 12/20/20 12:30 98.1 F 86 18 114/64 98 12/20/20 08:08 98.2 F 80 18 127/77 98 12/20/20 08:00 98 12/20/20 05:30 12 12/20/20 04:59 98.2 F 74 20 126/74 99 12/20/20 01:30 98.5 F 87 12 135/72 98 98 12/19/20 22:43 115 H 143/73 12/19/20 22:27 80 127/73 12/19/20 22:15 98.2 F 18 12/19/20 22:12 75 134/79 12/19/20 21:57 71 129/80 12/19/20 21:47 80 123/86 12/19/20 21:15 97 H 97 12/19/20 21:12 99 H 108/55 12/19/20 21:10 111 H 98 12/19/20 21:07 139 H 100/55 12/19/20 21:05 171 H 99 12/19/20 21:00 149 H 99 12/19/20 20:58 129 H 111/57 12/19/20 20:55 152 H 100 12/19/20 20:50 147 H 100 12/19/20 20:44 82 100 12/19/20 20:42 81 106/62 12/19/20 20:39 84 100 12/19/20 20:34 75 100 12/19/20 20:29 96 H 100 12/19/20 20:24 73 100 12/19/20 20:19 74 100 12/19/20 20:13 81 100 12/19/20 20:09 71 94 12/19/20 20:08 69 100 12/19/20 20:03 63 100 12/19/20 19:58 77 100 12/19/20 19:57 80 125/56 12/19/20 19:53 74 100 12/19/20 19:48 76 100 12/19/20 19:43 79 126/60 100 12/19/20 19:38 64 100 12/19/20 19:33 66 100 12/19/20 19:28 69 110/59 100 12/19/20 19:26 98.2 F 18 100 12/19/20 19:23 71 100 12/19/20 19:18 66 100 12/19/20 19:13 70 100 12/19/20 19:12 70 106/57 12/19/20 19:08 64 100 12/19/20 19:03 60 100 12/19/20 18:58 59 L 109/61 100 12/19/20 18:53 63 100 12/19/20 18:48 68 100 12/19/20 18:44 58 L 118/62 12/19/20 18:43 61 100 12/19/20 18:38 60 100 12/19/20 18:33 67 100 12/19/20 18:28 60 115/56 100 12/19/20 18:23 63 100 12/19/20 18:18 64 100 12/19/20 18:13 63 107/59 100 12/19/20 18:08 62 100 12/19/20 18:03 64 100 12/19/20 17:58 60 103/56 100 12/19/20 17:53 63 100 12/19/20 17:48 67 100 12/19/20 17:43 65 129/64 100 12/19/20 17:42 73 89 12/19/20 17:38 64 100 12/19/20 17:33 73 100 12/19/20 17:30 63 107/60 12/19/20 17:28 59 L 100 12/19/20 17:23 63 100 12/19/20 17:18 66 100 12/19/20 17:14 61 109/58 12/19/20 17:13 61 100 12/19/20 17:08 65 100 12/19/20 17:03 66 100 Intake and Output 12/20/20 12/20/20 12/20/20 06:59 14:59 22:59 Intake Total 240 Output Total 600 Balance -360 Intake: Oral 240 Output: Urine 600 Indwelling Catheter 600 Other: Total, Intake Amount 240 Total, Output Amount 600 # Voids Indwelling Catheter 2 - Exam Breasts: Present: deferred Cardiovascular: Present: Regular rate Lungs: Present: Normal air movement Abdomen: Present: normal appearance Uterus: Present: normal (Lochia normal. ) Extremities: Present: normal - Labs Labs: Abnormal lab results 12/20/20 Range/Units 11:45 Hgb 9.9 L (10.1-14.3) gm/dl
--- NOTE | 2020-12-21 08:04 | Discharge Summary ---
Providers - Providers Date of Admission: 12/19/20 05:59 Date of discharge: 12/21/20 (pt desires d/c) Attending physician: EMILEE CASON Primary care physician: EMILEE CASON Hospitalization Reason for admission: active labor Delivery: Episiotomy: none Laceration: 2nd degree Incision: normal, dry, intact Other procedures: none complications: none Discharge diagnosis: IUP at term delivered [place] baby: female Hospital course: uncomplicated vaginal delivery Pt A&O req d/c today VSS FF below umb Lochia small Perineum slight swelling intact. H&H stable No s/sx of anemia Doing well s/p vag delivery P: d/c today with instructions Desires IUD for PP BC. RX Motrin provided Condition at discharge: Good Disposition: 01 HOME / SELF CARE / HOMELESS - Discharge Diagnoses (1) Normal spontaneous vaginal delivery Status: Acute Comment: RTO 4 weeks PP Care Plan - Discharge Medications Prescriptions: Ibuprofen [Motrin 800 MG tab] 800 mg PO TID PRN #30 tablet PRN Reason: Pain - Provider Discharge Summary Activity: routine, no sex for 6 weeks, no heavy lifting 4 weeks, no strenuous exercise Diet: routine Instructions: routine Additional instructions: [] Smoking cessation referral if applicable(refer to patient education folder for contact #) [] Refer to [facility] Center Booklet Call your doctor immediately for: * Fever > 100.5 * Heavy vaginal bleeding ( >1 pad per hour) * Severe persistent headache * Shortness of breath * Reddened, hot, painful area to leg or breast * Drainage or odor from incision. * Keep incision clean and dry at all times and follow doctor's instructions regarding bathing/showering - Follow up plan Follow up: EMILEE CASON MD [Primary Care Provider] - 01/19/21 (Congratulations! Please call [phone] to schedule your visit in 4 weeks. Take Motrin as prescribed for cramping/pain. Call with any concerns.)
[2020-12-21] MEDS: IBUPROFEN 800 MG TAB PO SCH (10:04)
[2020-12-21] MEDS: DOCUSATE SODIUM 100 MG CAP PO SCH (10:04)
[2020-12-21 11:52] VITALS: BP 127/85
== END 2020-12-21 13:20 | disposition home or self-care (01) | DRG 775 ==
LOC: TRG 05:58 → APU 05:59 → TRG 09:04 → LD 09:25 → OB 12-20 01:29
PROVIDERS: ADMIT Obstetrics & Gynecology; ATTEND Obstetrics & Gynecology
PROC: 10E0XZZ Delivery of Products of Conception, External Approach (ICD-10-PCS; principal; 2020-12-19)
PROC: 0KQM0ZZ Repair Perineum Muscle, Open Approach (ICD-10-PCS; 2020-12-19)
PROC: 3E0R3BZ Introduction of Anesthetic Agent into Spinal Canal, Percutaneous Approach (ICD-10-PCS; 2020-12-19)
PROC: 00HU33Z Insertion of Infusion Device into Spinal Canal, Percutaneous Approach (ICD-10-PCS; 2020-12-19)
PROC: 3E0234Z Introduction of Serum, Toxoid and Vaccine into Muscle, Percutaneous Approach (ICD-10-PCS; 2020-12-20)
DX: O77.0 Labor and delivery complicated by meconium in amniotic fluid (principal); Z3A.40 40 weeks gestation of pregnancy; O99.214 Obesity complicating childbirth; O99.824 Streptococcus B carrier state complicating childbirth; O99.62 Diseases of the digestive system complicating childbirth; K21.9 Gastro-esophageal reflux disease without esophagitis; O69.81X0 Labor and delivery complicated by cord around neck, without compression, not applicable or unspecified; O70.1 Second degree perineal laceration during delivery; Z37.0 Single live birth; Z80.3 Family history of malignant neoplasm of breast; Z23 Encounter for immunization; Z20.822 Contact with and (suspected) exposure to COVID-19
CPT/HCPCS: 36415; 59025; 85014; 85018; 85027; 86592; 86850; 86900; 86901; 88305; 88307; 96360; 99211; G0378; G0463; J0290; J2210; J2590; J7030; J7120; U0003